=== PATIENT | female | born 1970 ===

== ENCOUNTER 2018-02-17 10:13 | Inpatient (IN) ==
[2018-02-17] MEDS ORDERED: MORPHINE 4 MG/1 ML VIAL IV PRN (13:40)
[2018-02-17] MEDS ORDERED: ALBUTEROL/IPRATROPIUM 3 ML NEB RESP TX PRN (13:40)
[2018-02-17] MEDS ORDERED: ACETAMINOPHEN 325 MG TABLET PO PRN (13:40)
[2018-02-17] MEDS ORDERED: BISACODYL 5 MG TABLET PO PRN (13:40)
[2018-02-17] MEDS ORDERED: ONDANSETRON 4 MG/2 ML VIAL IV PRN (13:40)
[2018-02-17] MEDS ORDERED: CETIRIZINE 10 MG TABLET PO PRN (13:49)
[2018-02-17] MEDS ORDERED: diphenhydrAMINE 2% CREAM 28 GM TUBE TOP PRN (13:49)
[2018-02-17] MEDS: PHENobarbital 30 MG TABLET PO SCH ×2 (17:04→21:23)
[2018-02-17] MEDS: PANTOPRAZOLE 40 MG TABLET PO SCH (17:04)
[2018-02-17] MEDS: LACTATED RINGERS 1,000 ML IV SCH ×2 (21:19→21:20)
[2018-02-17] MEDS: levETIRAcetam 500 MG TABLET PO SCH (21:22)
[2018-02-17] MEDS: PHENYTOIN ER 100 MG CAPSULE PO SCH (21:23)
[2018-02-18] MEDS: LACTATED RINGERS 1,000 ML IV SCH ×3 (04:58→13:13)
[2018-02-18 05:14] LABS: Basophils % 0.3 % (0.0-0.8); Eosinophils # 0.2 10*3/uL (0.0-0.87); Eosinophils % 4.1 % (0.00-10.9); Hematocrit 35.7 VOL% (35.7-47.0); Hemoglobin 12.1 GM/DL (12.0-16.0); Immature Granulocytes % 0.2 %; Immature Granulocytes Absolute 0.01 #; Lymphocytes # 1.9 10*3/uL (1.4-4.0); Lymphocytes % 32.5 % (21.3-54.2); Mean Corpuscular HGB Conc 33.9 GM/DL (32-36); Mean Corpuscular Hemoglobin 33 PG (27-34); Mean Corpuscular Volume 97.8 FL (87-102); Monocytes # 0.6 10*3/uL (0.11-0.8); Monocytes % 9.9 % (1.7-12.7); Neutrophils # 3.1 10*3/uL (1.4-7.4); Platelet Count 206 T/CUMM (130-400); Red Blood Count 3.65 MC/CUMM (3.8-5.5); Red Cell Distribution Width 12.4 % (9.3-17.3); White Blood Count 5.9 T/CUMM (4-12)
[2018-02-18 05:34] LABS: Albumin 2.7 G/DL (3.4-5.0); Bilirubin,Total 0.5 MG/DL (0.2-1.0); Calcium 8.2 MG/DL (8.5-10.1); Osmolality,Calculated 276.3 MOS/KG (273-304); Potassium 3.9 MMOL/L (3.5-5.1)
[2018-02-18] MEDS ORDERED: LIDOCAINE 1%/EPI INJ 20 ML VIAL ONE (08:13)
[2018-02-18] MEDS ORDERED: PROPOFOL 200 MG/20 ML VIAL IV ONE (10:43)
[2018-02-18] MEDS ORDERED: SEVOFLURANE 1 UNIT/15 MINUTE INH ONE (10:43)
[2018-02-18] MEDS ORDERED: ONDANSETRON 4 MG/2 ML VIAL ONE (10:44)
[2018-02-18] MEDS ORDERED: PHENYLEPHRINE 1 MG/10 ML SYRINGE IV ONE (10:44)
[2018-02-18] MEDS ORDERED: MIDAZOLAM 2 MG/2 ML VIAL ONE (10:44)
[2018-02-18] MEDS ORDERED: fentaNYL 100 MCG/2 ML VIAL ONE (10:44)
[2018-02-18] MEDS ORDERED: GLYCOPYRROLATE 0.4 MG/2 ML VIAL ONE (10:44)
[2018-02-18] MEDS ORDERED: ROCURONIUM 100 MG/10 ML VIAL IV ONE (10:45)
[2018-02-18] MEDS ORDERED: NEOSTIGMINE 10 MG/10 ML VIAL ONE (10:45)
[2018-02-18] MEDS ORDERED: HYDROmorphone 2 MG/1 ML VIAL IV PRN (10:45)
[2018-02-18] MEDS ORDERED: HYDROmorphone 2 MG/1 ML VIAL ONE (10:48)
[2018-02-18] MEDS: PHENYTOIN ER 100 MG CAPSULE PO SCH ×2 (12:21→20:24)
[2018-02-18] MEDS: levETIRAcetam 500 MG TABLET PO SCH ×2 (12:21→20:24)
[2018-02-18] MEDS: PHENobarbital 30 MG TABLET PO SCH ×3 (12:21→20:24)
[2018-02-18] MEDS: PANTOPRAZOLE 40 MG TABLET PO SCH (12:21)
[2018-02-18] MEDS: THIAMINE 100 MG TABLET PO SCH (12:21)
[2018-02-18] MEDS: MORPHINE 4 MG/1 ML VIAL IV PRN (18:26)
[2018-02-18] MEDS: ONDANSETRON 4 MG/2 ML VIAL IV PRN (18:26)
[2018-02-19] MEDS: ONDANSETRON 4 MG/2 ML VIAL IV PRN (03:12)
[2018-02-19] MEDS: MORPHINE 4 MG/1 ML VIAL IV PRN (03:13)
[2018-02-19] MEDS: LACTATED RINGERS 1,000 ML IV SCH ×4 (09:28→22:51)
[2018-02-19] MEDS: PANTOPRAZOLE 40 MG TABLET PO SCH (09:29)
[2018-02-19] MEDS: THIAMINE 100 MG TABLET PO SCH (09:29)
[2018-02-19] MEDS: PHENobarbital 30 MG TABLET PO SCH ×3 (09:29→21:14)
[2018-02-19] MEDS: levETIRAcetam 500 MG TABLET PO SCH ×2 (09:29→21:14)
[2018-02-19] MEDS: PHENYTOIN ER 100 MG CAPSULE PO SCH ×2 (09:29→21:14)
[2018-02-19] MEDS: cefOXitin 2,000 MG in SYRINGE 1 EACH IV SCH ×2 (16:08→21:19)
[2018-02-20] MEDS: cefOXitin 2,000 MG in SYRINGE 1 EACH IV SCH ×2 (03:04→11:18)
[2018-02-20 06:13] LABS: Basophils % 0.2 % (0.0-0.8); Eosinophils # 0.3 10*3/uL (0.0-0.87); Eosinophils % 3.1 % (0.00-10.9); Hematocrit 39.2 VOL% (35.7-47.0); Hemoglobin 13.2 GM/DL (12.0-16.0); Immature Granulocytes % 0.4 %; Immature Granulocytes Absolute 0.04 #; Lymphocytes # 2.5 10*3/uL (1.4-4.0); Mean Corpuscular HGB Conc 33.7 GM/DL (32-36); Mean Corpuscular Hemoglobin 33 PG (27-34); Mean Corpuscular Volume 98.2 FL (87-102); Mean Platelet Volume 8.4 FL (9.6-12.0); Monocytes # 0.9 10*3/uL (0.11-0.8); Monocytes % 8.9 % (1.7-12.7); Neutrophils % 61.4 % (38.7-73.9); Platelet Count 208 T/CUMM (130-400); Red Blood Count 3.99 MC/CUMM (3.8-5.5); Red Cell Distribution Width 12.4 % (9.3-17.3); White Blood Count 9.8 T/CUMM (4-12)
[2018-02-20 06:41] LABS: Calcium 8.4 MG/DL (8.5-10.1); Osmolality,Calculated 275.4 MOS/KG (273-304); Potassium 3.8 MMOL/L (3.5-5.1)
[2018-02-20] MEDS: levETIRAcetam 500 MG TABLET PO SCH (08:48)
[2018-02-20] MEDS: PANTOPRAZOLE 40 MG TABLET PO SCH (08:49)
[2018-02-20] MEDS: PHENobarbital 30 MG TABLET PO SCH ×2 (08:49→15:28)
[2018-02-20] MEDS: THIAMINE 100 MG TABLET PO SCH (08:49)
[2018-02-20] MEDS: PHENYTOIN ER 100 MG CAPSULE PO SCH (08:49)
[2018-02-20] MEDS: LACTATED RINGERS 1,000 ML IV SCH (11:16)
[2018-02-20 12:50] VITALS: BP 132/91
== END 2018-02-20 15:31 | DRG 358 ==
LOC: N.GILAB 10:13 → N.5E 13:40
PROVIDERS: ADMIT Internal Medicine Gastroenterology; ATTEND Internal Medicine Gastroenterology